=== PATIENT | female | born 1960 | race Caucasian/White ===

== ENCOUNTER → 2017-05-15 | Outpatient (CLI) | payer BC | END | disposition home or self-care (01) | LOC: KCIC 13:19 | DX: R06.2 Wheezing (principal); R05 Cough | CPT/HCPCS: 71046 ==

== ENCOUNTER → 2017-06-08 | Outpatient (CLI) | payer BC | END | disposition home or self-care (01) | LOC: KCIC MAMMO 14:21 | DX: Z12.31 Encounter for screening mammogram for malignant neoplasm of breast (principal); K44.9 Diaphragmatic hernia without obstruction or gangrene; I25.10 Atherosclerotic heart disease of native coronary artery without angina pectoris; R91.1 Solitary pulmonary nodule; Z87.891 Personal history of nicotine dependence | CPT/HCPCS: 71250; 77067 ==

== ENCOUNTER → 2017-07-16 | Outpatient (CLI) | payer BC | END | disposition home or self-care (01) | LOC: KCIC US 12:55 | DX: N63.13 Unspecified lump in the right breast, lower outer quadrant (principal); N63.23 Unspecified lump in the left breast, lower outer quadrant | CPT/HCPCS: 76641 ==

== ENCOUNTER → 2017-09-25 | Outpatient (CLI) | payer BC ==
--- NOTE | 2017-09-27 10:53 | PATHOLOGY ---
[facility] Accession Number: [id number] . 01 Material submitted: . LEFT BREAST MASS . 01 Clinical history: . Left breast mass . 02 Diagnosis: Breast tissue, left breast mass 4:00, needle biopsies: - Stromal fibrosis with focal cystic change and mild duct ectasia. LBQ/09/26/2017 . 02 Comment: There is no evidence of malignancy. Please correlate with clinical and radiographic findings. (JPM/db; 09/26/17) . 02 Electronically signed: . Velasquez Curtis MD, Pathologist NPI- [id number] . 01 Gross description: . Received in formalin labeled "Camilo, Victoria, right breast," and additionally labeled on the requisition and verified as "left breast mass, 4:00, 4.5 cm FN," are multiple needle cores of yellow-reeder fibrofatty tissue measuring 0.8 x 0.5 x 0.2 cm in aggregate dimensions. The tissue submitted in its entirety in cassette A1 through A3. The cold ischemic time is 5 minutes. The total formalin fixation time is 12 hours and 15 minutes. (TSD; 09/25/2017) /TOB . 02 Pathologist provided ICD-10: N60.32, N60.42 . 02 CPT . 385168 Performed at: 01 [facility] [address], [place] [id number] MD Jose E Meade MD Phone: [phone] Performed at: 02 [facility] [address] [place], [place] [id number] MD Velasquez Curtis MD Phone: [phone]
--- NOTE | 2017-09-28 11:33 | RAD ---
CLINICAL INDICATION: LEFT BREAST MASS 4:00 position-4 cm from the nipple PRE-PROCEDURAL CONSULTATION: Details of the procedure and possible limitations and complications were discussed with the patient. After addressing her questions and concerns, written informed consent was obtained. A time out was then taken to verify patient's name and date of as well as site and laterality. PROCEDURE: The mass at the 4 o'clock position within the left breast was targeted under ultrasound. The skin of the left breast was cleansed and prepped in the typical sterile fashion. 7 cc of 1% lidocaine was used for local anesthesia. A small skin incision was then made to permit passage of a 14 gauge spring activated biopsy device. 4 core specimens were obtained. A clip was then deployed at the biopsy site. Hemostasis was achieved. The patient tolerated the procedure well with no immediate complications. Post-procedural digital mammographic imaging of the left breast demonstrate the clip in appropriate position. IMPRESSION: Successful ultrasound guided core needle biopsy of a mass at the 4 o'clock position within the left breast. Pathology is pending.
== END | disposition home or self-care (01) ==
LOC: US 08:51
PROVIDERS: ATTEND Surgery
DX: N60.32 Fibrosclerosis of left breast (principal); N60.42 Mammary duct ectasia of left breast; Z88.0 Allergy status to penicillin
CPT/HCPCS: 19083; 77065; 88305; C1713; 19081; 76942

== ENCOUNTER → 2018-02-11 | Outpatient (CLI) | payer BC ==
--- NOTE | 2018-02-11 15:31 | KCIC ---
EXAM: CT calcium scoring. HISTORY: Atherosclerosis. TECHNIQUE: Computed tomographic images of the chest are obtained without contrast for calcium scoring. *One or more of the following individualized dose reduction techniques were utilized for this examination: 1. Automated exposure control. 2. Adjustment of the mA and/or kV according to patient size. 3. Use of iterative reconstruction technique. COMPARISON: 06/08/2017. FINDINGS: The heart is normal in size. The aorta is normal in caliber. There is calcified plaque involving the coronary arteries. There is no infiltrate, pleural effusion or pneumothorax within the visualized portions of the lungs. No suspicious nodule is seen. There is no lymphadenopathy. There is no suspicious osseous lesion. There is a tiny hiatal hernia. There is suspected hepatic steatosis. There is degenerative change within the visualized thoracic spine. Calcium scoring: LM: 0 LAD: 35.3 CX: 0 RCA: 3 Total: 38.3 IMPRESSION: 1. CT coronary calcium score of 38.3. 2. No acute thoracic finding or significant incidental thoracic finding. Electronically signed by: Belen Pelaez MD (02/11/2018 3:27 PM) [place] [id number]
== END | disposition home or self-care (01) ==
LOC: KCIC CT 08:51
PROVIDERS: ATTEND Nurse Practitioner Family
DX: I25.10 Atherosclerotic heart disease of native coronary artery without angina pectoris (principal); Z87.891 Personal history of nicotine dependence
CPT/HCPCS: 75571

== ENCOUNTER → 2018-04-30 | Outpatient (CLI) | payer BC ==
--- NOTE | 2018-04-30 15:09 | RAD ---
Indication: Low back pain TECHNIQUE: 3 views of the lumbar spine COMPARISON: None FINDINGS: Lumbar spine is in normal anatomic alignment. No compression deformity. SI joints within normal limits. Mild discs narrowing at L5-S1. IMPRESSION: Mild L5-S1 degenerative disc disease. Electronically signed by: Ulisses Perez DO (04/30/2018 3:06 PM) [facility]
== END | disposition home or self-care (01) ==
LOC: RAD 13:10
PROVIDERS: ATTEND Nurse Practitioner Family
DX: M51.37 Other intervertebral disc degeneration, lumbosacral region (principal); M48.07 Spinal stenosis, lumbosacral region; M46.87 Other specified inflammatory spondylopathies, lumbosacral region
CPT/HCPCS: 72100

== ENCOUNTER → 2019-09-23 | Outpatient (CLI) | payer BC ==
--- NOTE | 2019-09-23 08:56 | KCIC ---
Bone densitometry 09/23/2019 9:00 AM Indication: Reason: OSTEOPOROSIS SCREENING, LOSS OF HEIGHT / Spl. Instructions: / History: Comparison Study: None. Discussion: Bone Densitometry was performed with dual photon absorption of the lumbar spine and proximal left femur. Lumbar Spine: Bone average density is 0.912 g/cm2 for L1-L4. T-Score is -1.2. Left femoral neck: Bone average density is 0.943 g/cm2. T-Score is 0. IMPRESSION: Osteopenia, with decreased bone mineral density lumbar spine Note: Definitions established by the World Health Organization: Normal: T-score is -1.0 or above. Osteopenia: T-score is between -1.0 and -2.5. Osteoporosis: T-score is -2.5 or below. Electronically signed by: Chema Fenton MD (09/23/2019 8:52 AM) [id number]
--- NOTE | 2019-09-23 12:08 | KCIC ---
Bilateral digital screening mammograms: Reason for examination: Routine screening. Comparison is made to previous studies dated 09/25/2017 and 06/08/2017. Interpretation was made with the benefit of CAD. The skin and nipples show no abnormalities. No abnormal axillary lymph nodes are seen. The breast parenchyma is heterogeneously dense. (Breast density: Category C) There continue to be small parenchymal asymmetries which are stable. There are no new dominant masses, suspicious calcifications or architectural distortion. There are scattered and clustered calcifications seen bilaterally which are stable. Impression: No evidence of malignancy. Recommend routine screening. Your patient's mammogram demonstrates that she has dense breast tissue (breast density category C or D), which could hide abnormalities, and if she has other risk factors for breast cancer that have been identified, she might benefit from supplemental screening tests that may be suggested by you as her ordering physician. Dense breast tissue, in and of itself, is a relatively common condition. Therefore, this information is not provided to cause undue concern, but rather to raise your awareness and to promote discussion with your patient regarding the presence of other risk factors, in addition to dense breast tissue. Your patient's mammography results will be sent to her. BI-RADS Category 2: Benign. "Our facility is accredited by the [employer] Mammography Program." This patient's information has been entered into a reminder system for the patient to be notified with the results of her examination and a target date for the next mammogram. Electronically signed by: Emelina Stephenson MD (09/23/2019 12:04 PM) [id number]
== END | disposition home or self-care (01) ==
LOC: KCIC MAMMO 08:10
PROVIDERS: ATTEND Nurse Practitioner Family
DX: Z12.31 Encounter for screening mammogram for malignant neoplasm of breast (principal); N64.89 Other specified disorders of breast; M85.88 Other specified disorders of bone density and structure, other site
CPT/HCPCS: 77067; 77080

== ENCOUNTER 2020-06-02 00:55 | Emergency (ER) | payer OTHER, BC ==
[~2020-06-02] VITALS: Ht 157.5 cm; Wt 126.0 kg
[2020-06-02] MEDS ORDERED: ONDANSETRON PF 4 MG/2 ML VIAL. IVP ONE (01:15)
[2020-06-02] MEDS ORDERED: MORPHINE SULFATE 4 MG/ML VIAL. IV ONE ×2 (01:15→02:00)
--- NOTE | 2020-06-02 01:40 | RAD ---
Study: XR HUMERUS_RT 2 VIEWS Indication: Fall. Pain. Comparison: None. Findings: Acute fracture of the proximal humerus centered at the surgical neck. There is impaction across the f racture site and the humeral shaft is angulated anteriorly by around 1 cm. The greater tuberosity is fractured as well with less than a centimeter of displacement on the obtained views. Poorly evaluated lesser tuberosity. No acute fracture seen at the more distal humerus. Mild hypertrophic arthrosis at the AC joint. The h umeral head is rotated but remains aligned with the glenoid. Impression: Acute proximal humerus fracture with well visualized involvement of the surgical neck and greater tub erosity, as above. Electronically signed by: ROBERT AUGUSTIN MD (06/02/2020 1:37 AM) ZARINA
[2020-06-02] MEDS ORDERED: HYDR-2759 PO (01:49)
--- NOTE | 2020-06-02 01:50 | PHYS DOC ---
General Adult EDM: Chief Complaint: MECHANICAL FALL HPI: HPI: Patient is a 59 year old female presents with a chief complaint of right arm pain. Prior to arrival patient fell forward into a windowsill. Patient broke her fall with her right arm, Patient states she immediately had pain in her right proximal humerus. Patient states she heard a cracking sound. On exam patient is pain-free while at rest. Patient's pain increases with range of motion. Patient denies any elbow wrist or hand pain. Patient right upper extremity is neurovascularly intact. Review of Systems: Review of Systems: Review of systems: Constitutional symptoms- No fever, no chills. Eyes- No Discharge, No Visual Loss Respiratory symptoms- No shortness of breath, No wheezing, No Dyspnea on Exertion Cardiovascular Systems; No chest pain, No Palpitations, No syncope Gastrointestinal symptoms: NO abdominal pain, no nausea, no vomiting or diarrhea. Genitourinary symptoms: No dysuria. Musculoskeletal symptoms: No back pain Positive extremity pain. NEUROLOGICAL Symptoms: No headache, no generalized weakness; No focal Weakness Heart Score: C/O Chest Pain: N/A Risk Factors: Risk Factors: DM, Current or recent (<one month) smoker, HTN, HLP, family history of CAD, obesity. Risk Scores: Score 0 - 3: 2.5% MACE over next 6 weeks - Discharge Home Score 4 - 6: 20.3% MACE over next 6 weeks - Admit for Clinical Observation Score 7 - 10: 72.7% MACE over next 6 weeks - Early Invasive Strategies Current Medications: Current Medications Medications (Trade) Dose Ordered Sig/Concha Start Time Stop Time Status Last Admin Dose Admin Morphine Sulfate (Morphine Sulfate) 4 mg 1X ONCE 06/02/20 01:15 06/02/20 01:16 DC 06/02/20 01:23 4 MG Ondansetron HCl (Zofran) 4 mg 1X ONCE 06/02/20 01:15 06/02/20 01:16 DC 06/02/20 01:23 4 MG Allergies: Allergies: Allergies Coded Allergies Type Severity Reaction Last Updated Verified Penicillins Allergy Unknown 09/25/17 Yes Physical Exam: PE: General: alert, no acute distress. Skin: warm, dry and intact. Head:: Normocephalic, atraumatic. Neck: Trachea midline. Eyes: EOMI, Normal conjunctiva, No drainage CARDIOVASCULAR: Regular rate and rhythm RESPIRATORY: No respiratory distress Back: Full range of motion. MUSCULOSKELETAL: Full range of motion of bilateral lower extremities. Decreased range of motion right upper extremity, pain with range of motion at proximal humerus GASTROINTESTINAL: Abdomen soft without rebound or guarding. NEUROLOGICAL: Alert and noted to person, place and time. No neurological deficits observed right upper extremity is neurovascularly intact Psychiatric: Cooperative. Normal judgment EKG: EKG: [] Radiology/Procedures: Radiology/Procedures: [] Impression: Findings: Acute fracture of the proximal humerus centered at the surgical neck. There is impaction across the fracture site and the humeral shaft is angulated anteriorly by around 1 cm. The greater tuberosity is fractured as well with less than a centimeter of displacement on the obtained views. Poorly evaluated lesser tuberosity. No acute fracture seen at the more distal humerus. Mild hypertrophic arthrosis at the AC joint. The humeral head is rotated but remains aligned with the glenoid. Impression: Acute proximal humerus fracture with well visualized involvement of the surgical neck and greater tuberosity, as above. Course & Med Decision Making: Course & Med Decision Making Pertinent Labs and Imaging studies reviewed. (See chart for details) [] Patient was evaluated for chief complaint. X-ray positive for proximal humerus fracture Patient pain treated with morphine. Patient placed in a sling she is discharged home on hydrocodone she was referred to orthopedics. Discussed patient with Dr. Brianne Chau Disclaimer: Kandi Disclaimer: This electronic medical record was generated, in whole or in part, using a voice recognition dictation system. Departure Departure Impression: Primary Impression: Humeral fracture Disposition: HOME / SELF CARE / HOMELESS Condition: STABLE Referrals: SANG CARRANZA MD (PCP) FARZAD FISHER MD Patient Instructions: Humerus Fracture, Treated with Immobilization Scripts Oxycodone HCl/Acetaminophen (Percocet 5-325 mg Tablet) 1 Each Tablet 1 TAB PO Q4-6HRS MDD 4 Tablet(s), #20 TAB 0 Refills Prov: ZULMA HOLLEY DO 06/02/20 ZULMA HOLLEY DO Jun 02, 2020 01:50
[2020-06-02] MEDS ORDERED: OXYC-325 PO (02:05)
[2020-06-02 02:25] VITALS: BP 179/97
== END 2020-06-02 02:55 | disposition home or self-care (01) ==
LOC: ER 00:55
DX: S42.201A Unspecified fracture of upper end of right humerus, initial encounter for closed fracture (principal); Z88.0 Allergy status to penicillin; W17.89XA Other fall from one level to another, initial encounter; Y93.89 Activity, other specified; Y92.89 Other specified places as the place of occurrence of the external cause; Y99.8 Other external cause status
CPT/HCPCS: 73060; 96374; 96375; 96376; 99284; A4565; J2270; J2405

== ENCOUNTER 2020-06-04 09:38 | Emergency (ER) | payer OTHER, BC ==
[~2020-06-04] VITALS: Ht 157.5 cm; Wt 131.5 kg
[~2020-06-04 09:38] MED LIST: HYDR-2759 PO; OXYC-325 PO
[2020-06-04 09:48] VITALS: BP 144/68
[2020-06-04] MEDS ORDERED: HYDR-2761 PO (10:01)
[2020-06-04] MEDS ORDERED: CYCL10TA2 PO (10:01)
--- NOTE | 2020-06-04 10:01 | ED.ADGEN ---
Past Medical History Past Medical History: High Cholesterol Past Surgical History: Tonsillectomy, Other Additional Past Surgical Histo: D&C Smoking Status: Never Smoker Alcohol Use: None General Adult EDM: Chief Complaint: UPPER EXTREMITY PAIN HPI: HPI: Patient is a 59-year-old female who arrives ambulatory to the emergency department complaining of ongoing pain of her right upper extremity which is now migrating into her right elbow as well as right side of her back. Patient fell recently and sustained a fracture to the proximal humerus. Patient has exhaust ed her pain medication as she is awaiting an appointment with an orthopedist for next Sunday as her injury was sustained at work. Patient states she tried to visit with her primary care physician but given the nature of her injury she was unable to be evaluated because it is a Workmen's Compensation claim. Patient states despite wearing a sling she has continued pain. She was prescribed naproxen however she was informed that naproxen can inhibit the healing of her fracture. She denies any new falls. She further denies any head injury. Additionally she denies any chest pain. She is awake, alert and nontoxic- appearing. Review of Systems: Review of Systems: Constitutional: Denies fever or chills. [] Eyes: Denies change in visual acuity. [] HENT: Denies nasal congestion or sore throat. [] Respiratory: Denies cough or shortness of breath. [] Cardiovascular: Denies chest pain or edema. [] GI: Denies abdominal pain, nausea, vomiting, bloody stools or diarrhea. [] : Denies dysuria. [] Musculoskeletal: Reports to right upper back, right upper extremity pain as well as right elbow. Denies back pain. [] Integument: Denies rash. [] Neurologic: Denies headache, focal weakness or sensory changes. [] Endocrine: Denies polyuria or polydipsia. [] Lymphatic: Denies swollen glands. [] Psychiatric: Denies depression or anxiety. [] Family History: Family History: Noncontributory Allergies: Allergies: Allergies Coded Allergies Type Severity Reaction Last Updated Verified Penicillins Allergy Intermediate rash 06/04/20 Yes celecoxib Adverse Reaction Intermediate swelling in knees 06/04/20 Yes Physical Exam: PE: Constitutional: Well developed, well nourished, no acute distress, non-toxic appearance. [] HENT: Normocephalic, atraumatic, bilateral external ears normal, oropharynx moist, no oral exudates, nose normal. [] Eyes: PERRLA, EOMI, conjunctiva normal, no discharge. [] Neck: Normal range of motion, no tenderness, supple, no stridor. [] Cardiovascular:Heart rate regular rhythm, no murmur [] Lungs & Thorax: Bilateral breath sounds clear to auscultation [] Abdomen: Bowel sounds normal, soft, no tenderness, no masses, no pulsatile masses. [] Skin: Warm, dry, no erythema, no rash. [] Back: No tenderness, no CVA tenderness. [] Extremities: The patient's right upper extremity is immobilized in a sling. There is tenderness at the proximal humerus. Range of motion is limited given her injury. no cyanosis, no clubbing, no edema. [] Neurologic: Alert and oriented X 3, normal motor function, normal sensory function, no focal deficits noted. [] Psychologic: Affect normal, judgement normal, mood normal. [] Current Patient Data: Vital Signs: Vital Signs Date Time Temp Pulse Resp B/P (MAP) Pulse Ox O2 Delivery O2 Flow Rate FiO2 06/04/20 09:48 98.9 96 20 144/68 (93) 95 Room Air 98.9 EKG: EKG: [] Heart Score: C/O Chest Pain: No Risk Factors: Risk Factors: DM, Current or recent (<one month) smoker, HTN, HLP, family history of CAD, obesity. Risk Scores: Score 0 - 3: 2.5% MACE over next 6 weeks - Discharge Home Score 4 - 6: 20.3% MACE over next 6 weeks - Admit for Clinical Observation Score 7 - 10: 72.7% MACE over next 6 weeks - Early Invasive Strategies Radiology/Procedures: Radiology/Procedures: [] Course & Med Decision Making: Course & Med Decision Making Pertinent Labs and Imaging studies reviewed. (See chart for details) [] Dragdae Disclaimer: Kandi Disclaimer: This electronic medical record was generated, in whole or in part, using a voice recognition dictation system. Departure Departure Impression: Primary Impression: Encounter for medication refill Additional Impression: History of humerus fracture Disposition: HOME / SELF CARE / HOMELESS Condition: STABLE Referrals: SANG CARRANZA MD (PCP) Patient Instructions: Humerus Fracture, Treated with Immobilization, Eas y-to-Read, Medication Refill, Emergency Department Scripts Hydrocodone Bit/Acetaminophen (HYDROCODONE-APAP 5-325 ) 1 Tab Tablet 1 TAB PO PRN Q6HRS PRN for PAIN for 3 Days, #12 TAB 0 Refills Prov: ABHILASH HALE DO 06/04/20 Cyclobenzaprine Hcl (CYCLOBENZAPRINE HCL) 10 Mg Tablet 1 TAB PO TID for 7 Days, #21 TAB Prov: ABHILASH HALE DO 06/04/20 Problem Qualifiers ABHILASH HALE DO Jun 04, 2020 10:01
== END 2020-06-04 10:12 | disposition home or self-care (01) ==
LOC: ER 09:38
DX: S42.291A Other displaced fracture of upper end of right humerus, initial encounter for closed fracture (principal); E78.00 Pure hypercholesterolemia, unspecified; Z90.89 Acquired absence of other organs; Z98.890 Other specified postprocedural states; Z88.0 Allergy status to penicillin; Z88.8 Allergy status to other drugs, medicaments and biological substances; W18.39XA Other fall on same level, initial encounter; Y93.89 Activity, other specified; Y92.89 Other specified places as the place of occurrence of the external cause; Y99.8 Other external cause status
CPT/HCPCS: 99284

== ENCOUNTER → 2020-09-02 | Outpatient (CLI) | payer BC ==
[~2020-09-02] MED LIST changes: +CYCL10TA2 PO; +HYDR-2761 PO
--- NOTE | 2020-09-02 14:57 | KCIC ---
EXAMINATION: US PELVIS W/TV, US ABDOMEN COMPLETE 09/02/2020 8:43 AM INDICATION: Right upper quadrant abdominal pain, nausea. Post a possible bleeding. TECHNIQUE: Thurston scale and color Doppler ultrasound images of the abdomen were obtained. Grayscale and color Doppler ultrasound images of the pelvis were obtained via transabdominal and transvaginal appr [facility]. COMPARISON: None. FINDINGS: Abdomen: Liver: The liver is normal in size measuring 16.8 cm in length. Mildly increased hepatic echogenicity . No focal liver lesion. Gallbladder: The gallbladder is normal in caliber. There is a calculus measuring 1.6 cm layering in the gallbladder. The gallbladder wall is normal in thickness measuring 2 mm. Bile ducts: The common bile duct is normal measuring 4 mm. No intrahepatic biliary duct dilatation. Kidneys: The right kidney measures 12.8 x 4.6 x 4.0 cm. The left kidney measures 13.1 x 4.3 x 5.8 cm . Normal cortical thickness and echogenicity bilaterally. No hydronephrosis. Spleen: Spleen is normal measuring 11 cm. Other: Abdominal aorta is normal proximally but obscured in the mid and distal portion. Pancreas is n ormal where visualized in the pancreatic head and neck. Pelvis: The uterus measures 8.3 x 3.4 cm. Endometrial stripe measures 8 mm, mildly thickened. No focal endome trial mass. No myometrial mass visualized. There are few nabothian cysts in the cervix. Ovaries are n ot visualized. No free fluid. IMPRESSION: 1. Mild hepatic steatosis. 2. Cholelithiasis. 3. Endometrial thickness measuring 8 mm, mildly thickened in a postmenopausal patient. This can be se en with endometrial hyperplasia or endometrial cancer. Correlate with tissue sampling. 4. Nonvisualized ovaries. Electronically signed by: Zakia Montano MD (09/02/2020 2:54 PM) [id number]
== END ==
LOC: KCIC US 08:42
PROVIDERS: ATTEND Obstetrics & Gynecology
DX: N20.0 Calculus of kidney (principal); K80.20 Calculus of gallbladder without cholecystitis without obstruction; K76.0 Fatty (change of) liver, not elsewhere classified; N88.8 Other specified noninflammatory disorders of cervix uteri; N95.9 Unspecified menopausal and perimenopausal disorder; R11.0 Nausea
CPT/HCPCS: 76700; 76830; 76856